=== PATIENT | female | born 1990 | race Caucasian/White ===

== ENCOUNTER 2018-11-24 15:08 | Emergency (ER) | payer MEDICAID, OTHER ==
--- NOTE | 2018-11-24 16:00 | ERPHSYRPT ---
- History of Present Illness Time Seen by Provider: 11/24/18 15:15 Historian: patient Exam Limitations: no limitations Patient Subjective Stated Complaint: Pt states "Since yesterday morning I have had chest pain when I am moving. I went to [facility] emergency room just prior to coming here and they did nothing for me." Triage Nursing Assessment: Pt alert and oriented X 3, skin pwd Pt ambulates with an upright steady gait, able to speak in clear full sentences. Pt fidgeting , no apparent respiratory distress. Physician History: 28 y/o white female presents with left upper chest pain. began yesterday. no cough. no cardiac hx. no abd pain. no n/v/d. no soa. no chest wall injury. seen and released from [facility] ED prior to coming here for same complaint. I reviewed pts chart from that visit. no troponin obtained. work up performed otherwise complete and negative. i reviewed all results with her. what we together decided to order is another EKG and a troponin. Timing/Duration: yesterday Activities at Onset: none Quality: aching Location: other (left superficial) Chest Pain Radiation: no radiation Severity of Pain-Max: mild Severity of Pain-Current: mild (only with movement or palpation) Modifying Factors: Improves With: movement Associated Symptoms: No nausea, No vomiting, No shortness of breath, No cough Prior Chest Pain/Cardiac Workup: no prior chest pain, recently seen/treated Nitro Today/Relief: no nitro taken today Aspirin Treatment Today: provided by ED Allergies/Adverse Reactions: No Known Drug Allergies Allergy (Unverified 11/24/18 15:20) Home Medications: No Reportable Medications [No Reported Medications] 11/24/18 [History] Hx Tetanus, Diphtheria Vaccination/Date Given: No Hx Influenza Vaccination/Date Given: No Hx Pneumococcal Vaccination/Date Given: No Immunizations Up to Date: Yes - Review of Systems Constitutional: No Symptoms Eyes: No Symptoms Ears, Nose, & Throat: No Symptoms Respiratory: No Symptoms Cardiac: Chest Pain Abdominal/Gastrointestinal: No Symptoms Genitourinary Symptoms: No Symptoms Musculoskeletal: No Symptoms Skin: No Symptoms Neurological: No Symptoms Psychological: No Symptoms Endocrine: No Symptoms Hematologic/Lymphatic: No Symptoms Immunological/Allergic: No Symptoms All Other Systems: Reviewed and Negative - Past Medical History Pertinent Past Medical History: Yes Neurological History: No Pertinent History ENT History: No Pertinent History Cardiac History: No Pertinent History Respiratory History: Asthma Endocrine Medical History: No Pertinent History Musculoskeletal History: No Pertinent History GI Medical History: GERD History: No Pertinent History Psycho-Social History: No Pertinent History Female Reproductive Disorders: No Pertinent History - Past Surgical History Past Surgical History: Yes Neuro Surgical History: No Pertinent History Cardiac: No Pertinent History Respiratory: No Pertinent History Gastrointestinal: No Pertinent History Genitourinary: No Pertinent History Musculoskeletal: No Pertinent History Female Surgical History: No Pertinent History Other Surgical History: D & C. left middle finger - Social History Smoking Status: Never smoker Exposure to second hand smoke: No Drug Use: marijuana Patient Lives Alone: No - Female History Hx Last Menstrual Period: iud Hx Now: No - Nursing Vital Signs Nursing Vital Signs: Initial Vital Signs Temperature 98.2 F 11/24/18 15:09 Pulse Rate 110 H 11/24/18 15:09 Respiratory Rate 20 11/24/18 15:09 Blood Pressure 137/87 11/24/18 15:09 O2 Sat by Pulse Oximetry 98 11/24/18 15:09 Pain Scale Pain Intensity 4 - Physical Exam General Appearance: no apparent distress, alert, anxiety Eye Exam: PERRL/EOMI Ears, Nose, Throat Exam: normal ENT inspection, moist mucous membranes Neck Exam: normal inspection, non-tender, supple, full range of motion Respiratory Exam: normal breath sounds, chest tenderness, lungs clear, airway intact, No respiratory distress Cardiovascular Exam: normal heart sounds, normal peripheral pulses, tachycardia Gastrointestinal/Abdomen Exam: soft, normal bowel sounds, No tenderness, No guarding, No rebound Pelvic Exam: not done Rectal Exam: not done Back Exam: normal inspection, normal range of motion, No CVA tenderness, No vertebral tenderness Extremity Exam: normal inspection, normal range of motion, pelvis stable Neurologic Exam: alert, oriented x 3, cooperative, rubber 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 nml as tested Skin Exam: normal color, warm, dry Lymphatic Exam: No adenopathy SpO2 Interpretation: normal SpO2: 98 O2 Delivery: Room Air - Course Nursing assessment & vital signs reviewed: Yes EKG Interpreted by Me: RATE ([id number]), Sinus Rhythm, Sinus Tach, NORMAL AXIS, Non- specific ST Changes, Other ( sl improvement in tachycardia otherwise no change on comparison ekg 11/24/18 at 1220) Ordered Tests: Active Orders 24 hr Category Date Time Status EKG-ER Only STAT Care 11/24/18 15:45 Active TROPONIN Q3H Lab 11/24/18 16:04 Completed TROPONIN Q3H Lab 11/24/18 18:45 Ordered TROPONIN Q3H Lab 11/24/18 21:45 Ordered Lab/Rad Data: Laboratory Results 11/24/18 Range/Units 16:04 Troponin I < 0.012 (0.000-0.034) ng/mL - Progress Progress: unchanged Air Movement: good Blood Culture(s) Obtained: No Antibiotics given: No Counseled pt/family regarding: lab results, diagnosis, need for follow-up - Departure Time of Disposition: 16:58 Departure Disposition: Home Clinical Impression: Chest wall pain Condition: Stable Critical Care Time: No Additional Instructions: tylenol and ibuprofen for pain. follow up with primary doctor for further management
[2018-11-24 17:03] VITALS: BP 122/88; PULSE 112; O2SAT 99
== END 2018-11-24 17:07 | disposition home or self-care (01) ==
LOC: ED 15:08
DX: R07.89 Other chest pain (principal)
CPT/HCPCS: 36415; 84484; 93005; 99284